=== PATIENT | male | born 1975 | race Caucasian/White ===

== ENCOUNTER 2020-11-20 20:47 | Emergency (ER) | payer OTHER, SELFPAY ==
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
--- NOTE | ~2020-11-20 | XR_ITS ---
EXAMINATION: XR shoulder LT min 2V EXAM DATE: 11/20/2020 21:28 INDICATION: Left clavicular pain, left scapular pain after injury. TECHNIQUE: The following left shoulder projections obtained: frontal , Grashey, and scapular Y . The re is no prior study for comparison. FINDINGS: There is acute closed posttraumatic left clavicular shaft fracture with comminution and inf erior displacement. The glenohumeral and acromioclavicular joints are unremarkable. There are multiple consecutive left rib fractures, 3rd through 8th posterior laterally. Significant d isplacement of the left 5th rib fracture. Left 9th rib fracture appears to be most likely old. Paucity of left apical lung markings, possible pneumothorax. IMPRESSION: 1. Possible small left pneumothorax. Recommend PA chest x-ray. 2. Left 3rd through 8th acute rib fractures. 3. Comminuted clavicular shaft fracture with inferior displacement. Reviewed, dictated and finalized at location A.
[2020-11-20 20:50] VITALS: BP 152/88; PULSE 123; RESP 20; TEMP 36.3; O2SAT 100
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
[2020-11-20 22:46] LABS: Basophils Absolute Auto 0.1 K/mm3 (0.0-0.1); Basophils Percent Auto 0.4 % (0.2-1.2); Eosinophils Absolute Auto 0.1 K/mm3 (0-0.3); Eosinophils Percent Auto 0.4 % (0-4.4); Hematocrit 40.9 % (42.0-52.0); Hemoglobin 13.7 g/dL (14.0-18.0); Immature Granulocyte Absolute 0.03 K/mm3 (0.00-0.031); Immature Granulocyte Percent A 0.3 % (0-0.5); Lymphocytes Absolute Auto 1.21 K/mm3 (0.9-3.2); Lymphocytes Percent Auto 10.9 % (18.3-44.2); Mean Corpuscular HGB Conc 33.5 g/dl (32-36); Mean Corpuscular Hemoglobin 29.9 pg (26-34); Mean Corpuscular Volume 89.3 fl (80-100); Mean Platelet Volume 11.1 fl (7.4-10.4); Monocytes Absolute Auto 0.8 K/mm3 (0.1-0.6); Monocytes Percent Auto 6.9 % (2.6-8.5); Neutrophils Percent Auto 81.1 % (45.5-73.1); Platelet Count Result 286 k/mm3 (150-375); Red Blood Count 4.58 M/mm3 (4.6-6.20); Red Cell Distribution Width 12.5 % (11.5-14.5); White Blood Count 11.1 K/mm3 (4.5-10.0)
[2020-11-20] MEDS: MORPHINE SULFATE (*CRX) 4 MG/ML INJ IV PUSH (22:50)
[2020-11-20] MEDS: ONDANSETRON INJ 4 MG/2 ML VIAL IV PUSH (22:51)
[2020-11-20] MEDS: SODIUM CHLORIDE 0.9% IV 1,000 ML 999 ML IV CONT (22:51)
[2020-11-20 22:56] LABS: Partial Thromboplastin Time 28.1 SECONDS (22.3-36.8)
[2020-11-20 23:00] LABS: Alanine Aminotransferase 21 U/L (4-50); Albumin Level 4.3 g/dL (3.5-5.1); Alkaline Phosphatase 72 U/L (38-126); Anion Gap 5 mmol/L (8-16); Aspartate Amino Transferase 43 U/L (17-59); Bilirubin,Total 0.6 mg/dL (0.2-1.3); Blood Urea Nitrogen 14 mg/dL (9-20); Calcium 9.1 mg/dL (8.4-10.2); Carbon Dioxide 32 mmol/L (22-30); Chloride 102 mmol/L (98-107); Estimated CRCL calculation 108 ml/min; Estimated Glomerular Filt Rate > 60; Glucose 146 mg/dL (75-110); Potassium 4.1 mmol/L (3.4-5.0); Sodium 139 mmol/L (137-145)
--- NOTE | 2020-11-20 23:10 | PC.NURSE ---
Pt to CT at this time
--- NOTE | 2020-11-20 23:15 | PC.NURSE ---
Pt to CT scan in stretcher.
[2020-11-20 23:32] VITALS: BP 149/100; PULSE 100; RESP 20; O2SAT 96
--- NOTE | 2020-11-20 23:50 | PC.NURSE ---
Litzy ([facility]) left phone number for pt update when he gets a bed at [facility]. Phone # is [phone].
--- NOTE | 2020-11-20 23:57 | PC.NURSE ---
Pt back from CT scan - appears asleep on stretcher. Resting c eyes closed; resps even/nonlabored; spontaneous. does not appear to be in any distress. will continue to monitor.
[2020-11-21] VITALS (14 sets, daily range): BP systolic 140–158; BP diastolic 97–105; PULSE 95–109; RESP 18–32; TEMP 36.7; O2SAT 94–100
--- NOTE | 2020-11-21 00:20 | PC.NURSE ---
called [facility] to request transport. ETA 0200 [facility] and [facility] are not available for transfers tonight. [facility] is down two trucks tonight.
--- NOTE | 2020-11-21 00:25 | PC.NURSE ---
Report to [facility], Karrie. [facility] ETA 0200.
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
--- NOTE | 2020-11-21 03:16 | PC.NURSE ---
EMS here to transport [facility]. This RN called [facility] to update them of pt's impending arrival there. Pt requested pain meds prior to transport. Morphine 4 mg given IVP prior to transport.
[2020-11-21] MEDS: MORPHINE SULFATE (*CRX) 4 MG/ML INJ IV PUSH (03:19)
== END 2020-11-21 03:25 | disposition short-term general hospital (02) ==
PROVIDERS: Emergency Provider Nurse Practitioner
DX: S22.42XA Multiple fractures of ribs, left side, initial encounter for closed fracture (principal); S42.022A Displaced fracture of shaft of left clavicle, initial encounter for closed fracture; S27.0XXA Traumatic pneumothorax, initial encounter; Y93.55 Activity, bike riding; V18.4XXA Pedal cycle driver injured in noncollision transport accident in traffic accident, initial encounter
CPT/HCPCS: 36415; 71260; 73030; 74177; 80053; 85025; 85730; 96361; 96374; 96375; 99285; J2270; J2405; J7030; Q9967

== ENCOUNTER 2022-09-29 16:13 | Emergency (ER) | payer OTHER, SELFPAY ==
--- NOTE | 2022-09-29 18:00 | PC.NURSE ---
PT CALLED [facility] TO TRIAGE, NO ANSWER, DID NOT NOTIFY DRAPERY SEWER HAND WAS LEAVING
== END 2022-09-29 19:14 | disposition left against medical advice (07) ==
LOC: ANHED 19:10
DX: Z53.21 Procedure and treatment not carried out due to patient leaving prior to being seen by health care provider (principal)
CPT/HCPCS: 99199

== ENCOUNTER 2022-10-01 21:59 | Emergency (ER) | payer OTHER, SELFPAY ==
--- NOTE | 2022-10-01 22:41 | PC.NURSE ---
Patient called to place in exam room x2 without response. Patient was not witnessed leaving the ER but was not seen in the waiting room. Assumed to have left after signing in but before being triaged.
== END 2022-10-01 22:41 | disposition left against medical advice (07) ==
DX: Z53.21 Procedure and treatment not carried out due to patient leaving prior to being seen by health care provider (principal)
CPT/HCPCS: 99199

== ENCOUNTER 2024-06-01 04:37 | Emergency (ER) | payer OTHER, SELFPAY ==
[2024-06-01 04:40] VITALS: BP 180/107; RESP 15; TEMP 36.7; O2SAT 96
--- NOTE | 2024-06-01 05:00 | ED_ITS ---
HPI - General Adult General Chief complaint: Skin/Abscess/Foreign Body Stated complaint: Foot rash/infected? Time Seen by Provider: 06/01/24 04:39 History of Present Illness HPI narrative: Patient is a 49-year-old male who presents to the emergency department this evening due to concern for right lower extremity cellulitis. Patient states that he scraped the back of his right leg on a metal piece approximately 2-1/2 weeks ago and initially did not think much of it. Patient states that approximately 1 week ago he noticed some redness and states that within this past week the redness has progressed and is now concerned that he is developing cellulitis. Patient also is unsure of when his last tetanus shot was and believes that he is not date. Denies any fevers or chills at home and denies any additional symptoms or concerns at this time. Related Data Allergies Allergy/AdvReac Type Severity Reaction Status Date / Time No Known Allergies Allergy Verified 06/01/24 04:46 Review of Systems Review of Systems: All systems are reviewed and are negative unless stated otherwise in the HPI. [facility] Past Medical History Medical History Fixation hardware in leg Family History Family History Other Heart disease Social History Social History Smoking status: Never smoker Alcohol intake: current Alcohol use details: occasional Substance use: current Substance use type: marijuana Other substance usage details: occasional Living arrangements: with family Occupation/Education: occupation Exam Narrative: General: Alert, awake, afebrile, in no acute distress. HEENT: PERRL, no rhinorrhea, no post nasal drip, oropharynx clear. Cardiovascular: Regular rate and rhythm, no murmurs, rubs or gallops, no peripheral edema. Respiratory: Clear to auscultation bilaterally, no tachypnea, no wheezing, no rhonchi, no rubs, no respiratory distress. Abdomen: Soft, nontender, nondistended, no rebound, no guarding, no peritoneal signs. Musculoskeletal: Right lower extremity your edema extending from the ankle joint to the mid calf region, some areas of yellow crusting, intact DP and PT pulses, patient is neurovascularly intact. Skin: No rashes or petechia, no signs of infection. Neurological: Alert and oriented to person, place, and time. Follows all commands. No focal deficits, speech is clear and fluent. Course Vital Signs Vital signs: Vital Signs Temperature 98.1 F 06/01/24 04:40 Respiratory Rate 15 06/01/24 04:40 Blood Pressure 180/107 H 06/01/24 04:40 Pulse Oximetry 96 06/01/24 04:40 Oxygen Delivery Room Air 06/01/24 04:40 Temperature 98.1 F 06/01/24 04:40 Respiratory Rate 15 06/01/24 04:40 Blood Pressure 180/107 H 06/01/24 04:40 Pulse Oximetry 96 06/01/24 04:40 Oxygen Delivery Room Air 06/01/24 04:40 Medical Decision Making MDM Narrative Medical decision making narrative: The patient was evaluated by myself in the emergency department. History is obtained from patient who is an independent historian and physical exam was performed. External medical records were reviewed at this time. IV was established and pertinent tests were ordered. Laboratory results obtained revealing status 11 point ESR 52 and CRP 1.3 otherw ise unremarkable. Shared medical decision-making with patient regarding admission for IV antibiotics versus discharge with oral antibiotics with discussed with the patient at this time and patient would like trialed on an oral antibiotic as an outpatient. He was informed that if his symptoms do not improve within the next 3 days to return to emergency department as he may need to be admitted for IV antibiotics and patient is agreeable with this plan. He was administered his 1st dose of antibiotic, Bactrim in the emergency department and was informed that a script will be sent to his pharmacy to take as prescribed for the next 7 days and patient is agreeable with this plan. Tetanus was updated today. Differential diagnosis considerations include laceration, abrasion, cellulitis, abscess. Comorbidities impacting this visit include none. I have evaluated and discussed social determinants of health with the patient that could potentially impact subsequent diagnosis and treatment plans. On repeat assessment of the patient, reevaluation revealed that the patient is doing well and is in no acute distress. Patient symptoms have improved since he arrived to our emergency department. Repeat vital signs were all reviewed and noted to be stable. Differential diagnosis and treatment plan were discussed with the patient at bedside. Patient agrees with discussion and after shared medical decision making agrees with discharge. All questions were answered to the patient's satisfaction. Patient will follow up with his PCP in 3-5 days. Patient was provided with strict return precautions and instructed to return to the emergency department if any new or worsening symptoms develop. The patient was discharged in stable condition. Vital Signs Vital Signs: Vital Signs Temperature 98.1 F 06/01/24 04:40 Respiratory Rate 15 06/01/24 04:40 Blood Pressure 180/107 H 06/01/24 04:40 Pulse Oximetry 96 06/01/24 04:40 Oxygen Delivery Room Air 06/01/24 04:40 Temperature 98.1 F 06/01/24 04:40 Respiratory Rate 15 06/01/24 04:40 Blood Pressure 180/107 H 06/01/24 04:40 Pulse Oximetry 96 06/01/24 04:40 Oxygen Delivery Room Air 06/01/24 04:40 Lab Data 06/01/24 05:49 06/01/24 05:15 Labs: Lab Results 06/01/24 06/01/24 Range/Units 05:15 05:49 WBC 11.9 H (4.5-10.0) K/mm3 RBC 4.41 L (4.6-6.20) M/mm3 Hgb 13.8 L (14.0-18.0) g/dL Hct 40.6 L (42.0-52.0) % MCV 92.1 (80-100) fl MCH 31.3 (26-34) pg MCHC 34.0 (32-36) g/dl RDW 12.4 (11.5-14.5) % Plt Count 295 (150-375) k/mm3 MPV 11.6 H (7.4-10.4) fl Immature Gran % (Auto) 0.4 (0-0.5) % Neut % (Auto) 73.3 H (45.5-73.1) % Lymph % (Auto) 15.6 L (18.3-44.2) % [place] % (Auto) 7.3 (2.6-8.5) % Eos % (Auto) 2.6 (0-4.4) % Baso % (Auto) 0.8 (0.2-1.2) % Lymph # (Auto) 1.85 (0.9-3.2) K/mm3 [place] # (Auto) 0.9 H (0.1-0.6) K/mm3 Eos # (Auto) 0.3 (0-0.3) K/mm3 Baso # (Auto) 0.1 (0.0-0.1) K/mm3 Abs Immat Gran (auto) 0.05 H (0.00-0.031) K/mm3 Absolute Neuts (auto) 8.7 H (1.3-6.7) K/mm3 Absolute Nucleated RBC 0.000 (0.0-0.012) K/mm3 Nucleated RBC % 0.0 (0.0-0.2) % ESR 52 H (0-20) mm/hr Sodium 138 (137-145) mmol/L Potassium 4.8 (3.4-5.0) mmol/L Chloride 101 (98-107) mmol/L Carbon Dioxide 31 H (22-30) mmol/L Anion Gap 6 (4-12) mmol/L BUN 17 (9-20) mg/dL Creatinine 1.10 (0.7-1.3) mg/dL Estim Creat Clear Calc 96 ml/min Estimated GFR > 60 (59 - ) Glucose 135 H (65-110) mg/dL Calcium 8.9 (8.4-10.2) mg/dL Total Bilirubin 1.1 (0.2-1.3) mg/dL AST 43 (17-59) U/L ALT 21 (6-50) U/L Alkaline Phosphatase 77 (38-126) U/L C-Reactive Protein 1.3 H (<1.0) mg/dL Total Protein 9.0 H (6.3-8.2) g/dL Albumin 4.4 (3.5-5.1) g/dL Discharge Plan Discharge Clinical Impression: Cellulitis Patient Disposition: Home, Self-Care Condition: Stable Instructions: Antibiotic Form, Cellulitis (ED) Additional Instructions: Please take the prescribed antibiotic as instructed for your right lower extremity cellulitis. Return to the emergency department if any new or worsening symptoms develop. Follow-up with your family doctor within the next 3-5 days. Prescriptions: New sulfamethoxazole-trimethoprim [Bactrim DS] 800-160 mg tablet 1 tablet PO Q12H 7 Days Qty: 14 0RF Follow-up/Referrals: Juan Beltrán, [Physician] - 3 Days PHYSICIAN,SECTION LEADER AND MACHINE SETTER [Non-Staff] - Time of Disposition: 06:34
[2024-06-01] MEDS: TETANUS,DIPHTHERIA,AC PERTUSSIS ADULT (0.5 ML) BOOSTRIX IM (05:19)
[2024-06-01 05:41] LABS: Alanine Aminotransferase 21 U/L (6-50); Albumin Level 4.4 g/dL (3.5-5.1); Alkaline Phosphatase 77 U/L (38-126); Anion Gap 6 mmol/L (4-12); Aspartate Amino Transferase 43 U/L (17-59); Bilirubin,Total 1.1 mg/dL (0.2-1.3); Blood Urea Nitrogen 17 mg/dL (9-20); CRP 1.3 mg/dL (<1.0); Calcium 8.9 mg/dL (8.4-10.2); Carbon Dioxide 31 mmol/L (22-30); Chloride 101 mmol/L (98-107); Estimated CRCL calculation 96 ml/min; Estimated Glomerular Filt Rate > 60; Glucose 135 mg/dL (65-110); Potassium 4.8 mmol/L (3.4-5.0); Sodium 138 mmol/L (137-145)
[2024-06-01 06:03] LABS: Basophils Absolute Auto 0.1 K/mm3 (0.0-0.1); Basophils Percent Auto 0.8 % (0.2-1.2); Eosinophils Absolute Auto 0.3 K/mm3 (0-0.3); Eosinophils Percent Auto 2.6 % (0-4.4); Hematocrit 40.6 % (42.0-52.0); Hemoglobin 13.8 g/dL (14.0-18.0); Immature Granulocyte Absolute 0.05 K/mm3 (0.00-0.031); Immature Granulocyte Percent A 0.4 % (0-0.5); Lymphocytes Absolute Auto 1.85 K/mm3 (0.9-3.2); Lymphocytes Percent Auto 15.6 % (18.3-44.2); Mean Corpuscular Hemoglobin 31.3 pg (26-34); Mean Corpuscular Volume 92.1 fl (80-100); Mean Platelet Volume 11.6 fl (7.4-10.4); Monocytes Absolute Auto 0.9 K/mm3 (0.1-0.6); Monocytes Percent Auto 7.3 % (2.6-8.5); Neutrophils Absolute Auto 8.7 K/mm3 (1.3-6.7); Neutrophils Percent Auto 73.3 % (45.5-73.1); Platelet Count Result 295 k/mm3 (150-375); Red Blood Count 4.41 M/mm3 (4.6-6.20); Red Cell Distribution Width 12.4 % (11.5-14.5); White Blood Count 11.9 K/mm3 (4.5-10.0)
[2024-06-01 06:27] LABS: Erythrocyte Sedimentation Rate 52 mm/hr (0-20)
[2024-06-01] MEDS: SULFAMETHOXAZOLE/TRIMETHOPRIM 800/160 MG DS TABLET 2 TAB PO (06:48)
[2024-06-01 06:51] VITALS: BP 176/98; PULSE 94; RESP 13; O2SAT 98
[2024-06-01 06:54] VITALS: BP 176/98; PULSE 94; RESP 13; O2SAT 98
== END 2024-06-01 06:56 | disposition home or self-care (01) ==
PROVIDERS: Emergency Provider Emergency Medicine
DX: L03.115 Cellulitis of right lower limb (principal); Z23 Encounter for immunization
CPT/HCPCS: 36415; 80053; 85025; 85652; 86140; 90471; 90715; 99283; A9270